=== PATIENT | female | born 1965 | race Caucasian/White ===

== ENCOUNTER → 2017-06-03 | Outpatient (CLI) | payer MEDICARE, OTHER ==
--- NOTE | 2017-06-05 10:09 | MM ---
Reason for exam: screening (asymptomatic). Last mammogram was performed 3 years and 8 months ago. History: Patient history of other cancer. Implants in both breasts, 2005. Physical Findings: A clinical breast exam by your physician is recommended on an annual basis and results should be correlated with mammographic findings. MG 3D Screen Mammo Imp/Cad Bilateral CC, MLO, and ID view(s) were taken. XCCL view(s) were taken of the right breast. Prior study comparison: September 24, 2013, mammogram, performed at [facility]. October 03, 2010, mammogram, performed at [facility]. Finding: There is a high density, indistinct irregular mass located 5 cm from the nipple in the upper inner quadrant, anterior position of the left breast medial CC view. Bilateral breast prothesis. New finding since September 24, 2013 and October 03, 2010. ASSESSMENT: Incomplete: need additional imaging evaluation, BI-RAD 0 RECOMMENDATION: Ultrasound of the left breast. [facility] will attempt to contact patient to return for ultrasound.
== END | disposition home or self-care (01) ==
LOC: RADMAMWWP 09:29
PROVIDERS: ATTEND Family Medicine
DX: Z12.31 Encounter for screening mammogram for malignant neoplasm of breast (principal)
CPT/HCPCS: 77063; G0202

== ENCOUNTER → 2017-06-20 | Outpatient (CLI) | payer MEDICARE, OTHER ==
--- NOTE | 2017-06-20 11:38 | USB ---
Reason for exam: additional evaluation requested from abnormal screening. History: Patient history of other cancer. Implants in both breasts, 2004. Physical Findings: Nurse did not find any significant physical abnormalities on exam. US Breast Workup Limited LT Technologist: Martha Gimenez Left breast ultrasound demonstrates a 0.4 x 0.3 x 0.6cm oval, mixed lesion at 9 o'clock. These results were verbally communicated with the patient and result sheet given to the patient on 06/20/17. ASSESSMENT: Suspicious, BI-RAD 4 RECOMMENDATION: Surgical consultation and ultrasound core biopsy of the left breast. Called Dr. Curtis with mammographic findings and has scheduled an appointment for the patient for 06/27/17 at 11:[address] Wolfe. PRELIMINARY REPORT CALLED AND FAXED TO DR. WOLFE ON 06/20/17.
== END | disposition home or self-care (01) ==
LOC: RADUSWWP 10:17
PROVIDERS: ATTEND Family Medicine
DX: R92.8 Other abnormal and inconclusive findings on diagnostic imaging of breast (principal)

== ENCOUNTER → 2017-08-06 | Day surgery (SDC) | payer MEDICARE, OTHER ==
--- NOTE | 2017-08-06 12:56 | USB ---
Discontinued breast biopsy CLINICAL INDICATION: Prior abnormal left breast ultrasound. FINDINGS: Again the patient was noted to be hypertensive and did not follow up the primary care physi saulo between the scheduled biopsy and today's scheduled biopsy. The patient was instructed to follow- up with a primary care physician for blood pressure control. Following this the biopsy will be resche duled.
== END ==
LOC: RADUSWWP 11:26
PROVIDERS: ATTEND Surgery
DX: R92.8 Other abnormal and inconclusive findings on diagnostic imaging of breast (principal); Z53.8 Procedure and treatment not carried out for other reasons; R03.0 Elevated blood-pressure reading, without diagnosis of hypertension

== ENCOUNTER → 2017-08-29 | Outpatient (CLI) | payer MEDICARE, OTHER ==
--- NOTE | 2017-08-29 14:51 | MR ---
EXAMINATION TYPE: MR brain wo con DATE OF EXAM: 08/29/2017 COMPARISON: 04/29/2015 HISTORY: 51-year-old female Paresthesia of skin / Facial numbness TECHNIQUE: Multiplanar, multisequence images of the brain and brainstem were acquired without IV con trast. Diffusion weighted imaging is performed. FINDINGS: No evidence for acute infarction, hemorrhage, mass, mass effect, midline shift, herniation, effacemen t of basal cisterns, or extra-axial fluid collection. The ventricles and sulci are age-appropriate. Major intracranial flow voids are intact. T2/FLAIR weighted sequences show mild to moderate scattered bright signal foci in the subcortical, pe riventricular, and deep white matter of both cerebral hemispheres. No significant change from prior e xam. Midline structures demonstrate normal morphology. The craniocervical junction is normal. Small amount of trapped fluid in the inferior right mastoid air cells. Mild mucosal thickening ethmoi d air cells. Globes are intact though patient's gaze is slightly divergent suggesting underlying stra bismus. IMPRESSION: 1. Chronic T2 bright white matter changes as described above. There is mild to moderate scattered bur den, unchanged from 04/29/2015 where differential diagnosis was provided. 2. No acute intracranial pneumonia seen. 3. Small amount of trapped fluid in the right mastoid air cells. Correlate for any mastoid pain to ex clude mastoiditis.
== END | disposition home or self-care (01) ==
LOC: RADMRIMAIN 13:40
PROVIDERS: ATTEND Family Medicine
DX: R90.89 Other abnormal findings on diagnostic imaging of central nervous system (principal); R20.2 Paresthesia of skin
CPT/HCPCS: 70551

== ENCOUNTER 2017-10-14 07:26 | Day surgery (SDC) | payer MEDICARE, OTHER ==
[2017-10-10 15:19] VITALS: BMI 30.1
[2017-10-14] MEDS ORDERED: ALPRAZolam 0.25 MG TAB PO PRN (07:45)
[2017-10-14] MEDS ORDERED: ASPIRIN 325 MG TAB PO STA (07:45)
[2017-10-14] MEDS ORDERED: ATORVASTATIN 80 MG TAB PO STA (07:45)
[2017-10-14] MEDS ORDERED: ALPRAZolam 0.5 MG TAB PO PRN (07:45)
[2017-10-14] MEDS ORDERED: NITROGLYCERIN SL TABS 0.4 MG TAB SUBLINGUAL PRN (07:45)
[2017-10-14] MEDS ORDERED: SODIUM CHLORIDE 0.9% 1,000 ML in EMPTY BAG 1 BAG IV ONE (07:45)
[2017-10-14 08:38] VITALS: PULSE 63; TEMP 97.9
[2017-10-14] MEDS ORDERED: LIDOCAINE 2% INJ 20 MG/ML (20 ML MDV) ONE (09:36)
[2017-10-14] MEDS ORDERED: fentaNYL (PF) 50 MCG/ML 2 ML AMP ONE (10:01)
[2017-10-14] MEDS ORDERED: MIDAZOLAM 2 MG/2 ML VIAL ONE (10:01)
[2017-10-14] MEDS ORDERED: MIDAZOLAM 2 MG/2 ML VIAL IV ONE (10:04)
[2017-10-14] MEDS ORDERED: LIDOCAINE 2% INJ 20 MG/ML SQ ONE (10:05)
[2017-10-14] MEDS ORDERED: fentaNYL (PF) 50 MCG/ML 2 ML AMP IV ONE (10:05)
[2017-10-14] MEDS ORDERED: hydrALAZINE HCL 20 MG/ML 1 ML VIAL ONE (10:10)
[2017-10-14] MEDS ORDERED: hydrALAZINE HCL 20 MG/ML 1 ML VIAL IVP ONE (10:11)
[2017-10-14] MEDS ORDERED: LABETALOL 5 MG/ML VIAL MDV IVP ONE (10:15)
[2017-10-14] MEDS ORDERED: NITROGLYCERIN OINT 1 INCH/GM PACKET TOPICAL ONE ×2 (10:17→10:18)
[2017-10-14] MEDS ORDERED: amLODIPine 5 MG TAB ONE (10:23)
[2017-10-14] MEDS ORDERED: amLODIPine 5 MG TAB PO ONE (10:24)
[2017-10-14] MEDS ORDERED: IOHEXOL 350 MG/ML (PER ML) 100ML BTL INJ ONE (10:24)
[2017-10-14] MEDS ORDERED: HYDROcodone/APAP 5-325MG 1 EACH TAB PO PRN (10:32)
[2017-10-14] MEDS ORDERED: RX INFO: IV CONTRAST WAS GIVEN 1 EACH MISC MISCELLANE PRN (10:32)
[2017-10-14] MEDS: LABETALOL 5 MG/ML VIAL MDV IVP ONE ×2 (10:33→10:38)
--- NOTE | 2017-10-14 10:39 | P.PCN ---
Date of Procedure: 10/14/17 Preoperative Diagnosis: Chest pain and a positive stress test Postoperative Diagnosis: Normal coronary arteries Procedure(s) Performed: Left heart catheterization without left ventriculography Description of Procedure: HISTORY: This is a 52-year-old female with history of hypertension who was recently evaluated by stress test which was suggestive of ischemia in the apical lateral wall area. Patient has been having chest pains. She was given the option of having a dobutamine echo versus cardiac cath for definitive diagnosis. Patient preferred to have cardiac catheterization. CONSENT:I have discussed the risks, benefits and alternative therapies for the above-mentioned procedure and for both sedation/analgesia as well as necessary blood product administration, if indicated, as they pertain to this patient. The patient has indicated understanding and acceptance of the risks and procedures discussed. PROCEDURE: Patient was brought to the lab in a fasting state. Patient was given some IV sedation. The right groin is infiltrated with lidocaine and right femoral artery was entered using Seldinger technique. A 6-Mongolian catheter was left in place and selective coronary arteriography and left ventriculography was performed. Patient tolerated the procedure well. Femoral angiogram was performed and Angio-Seal was applied for hemostasis. No immediate complications were noted and patient was transferred to [facility] in a stable condition Conscious Sedation: Versed: 2 mg Fentanyl: 50 g Duration: 22minutes HEMODYNAMICS: The aortic pressure is about 170/110. Left ventricular end- diastolic pressure is about 12-16. There was no gradient across the aortic valve. SELECTIVE CORONARY ARTERIOGRAPHY: LEFT MAIN: The left main coronary artery is of normal length and patent THE LEFT ANTERIOR DESCENDING CORONARY ARTERY:. This is a good caliber vessel giving rise to small diagonal and septal branches. The LAD and its branches are free of occlusive disease. THE LEFT CIRCUMFLEX AND IS CORONARY ARTERY: This is a fairly caliber vessel giving rise to 2 distal PLV branches and a small OM branch. This is free of occlusive disease THE RIGHT CORONARY ARTERY:. This is a dominant vessel giving rise to good-sized PDA and PLV. Free of any occlusive disease LEFT VENTRICULOGRAPHY:. Not performed FINAL IMPRESSION:, Normal coronary arteries. Uncontrolled hypertension.. Mildly elevated end-diastolic pressure PLAN: Maximum medical therapy and this factor modification PROGNOSIS: Fair.
[2017-10-14] MEDS ORDERED: SODIUM CHLORIDE 0.9% 1,000 ML IV SCH (10:45)
[2017-10-14 16:38] VITALS: BP 143/88; RESP 18
== END 2017-10-14 16:30 | disposition home or self-care (01) ==
LOC: CATHCVL 07:26
PROVIDERS: ATTEND Internal Medicine Cardiovascular Disease
DX: R94.39 Abnormal result of other cardiovascular function study (principal); R07.89 Other chest pain; I10 Essential (primary) hypertension; Z82.49 Family history of ischemic heart disease and other diseases of the circulatory system; Z79.1 Long term (current) use of non-steroidal anti-inflammatories (NSAID); Z79.899 Other long term (current) drug therapy; Z88.2 Allergy status to sulfonamides
CPT/HCPCS: 93458; C1760; C1894; C1769; J2001; J2250; J0360; Q9967; J3010

== ENCOUNTER → 2018-01-15 | Outpatient (CLI) | payer MEDICARE, OTHER ==
[2018-01-15 15:00] VITALS: BMI 29.7
--- NOTE | 2018-01-15 15:27 | P.GSHP ---
History of Present Illness H&P Date: 01/15/18 Patient is a 52-year-old white female who is been followed for mammographic abnormality in the left breast. In May 2017 she was noted to have a high density indistinct irregular mass 5 cm from the nipple in the upper inner quadrant of the left breast. She additionally was noted to have bilateral breast prosthesis. No lesions of concern in the right breast. The patient subsequently had an ultrasound performed after which an ultrasound core biopsy was recommended however I do not have the reports of that ultrasound at this time. An attempt at ultrasound-guided core biopsy was performed on in July 2017 however the patient was hypertensive and therefore the biopsy was canceled. The patient does not feel anything in her breast. The patient is now being treated for the high blood pressure. She wants to be evaluated prior to the attempt at repeat biopsy. The patient has no nipple discharge or changes of concern. The patient has no pain in her breast. Family history: 1. Patient has had skin cancer in the past, squamous cell Menarche: 11 Pregnancies: 2, patient did not breast-feed Menopause: The patient had a hysterectomy at the age of 33. Do not take both ovaries control pills/hormones: Never used Social history: Smoking: Negative Alcohol: Negative Drugs: Medical marijuana used for for hip pain and high blood pressure uses a several times a week Past surgical history: 1. Breast implants bilateral. Skin reduction 2. Left hip and plan 3. Carpal tunnel bilaterally 4. Appendectomy 5. Leg lengthening of the muscles in both of her legs 6. A hysterectomy 7. Tubal ligation 8. surgical removal of eyelid left eye for SCC Past medical history: 1. Hypertension 2. Skin cancers treated with surgical resection, followed by dermatology 3. anxiety/depression Review of systems: HEENT: Negative Lungs: Negative Heart: Hypertension, negative GI: Negative : Status post hysterectomy this was performed for irregular bleeding Neurologic: Negative ALLERGIES: Seasonal Endocrine: none - Constitutional Constitutional: Reports as per HPI - EENT Eyes: bilateral as per HPI Ears, nose, mouth and throat: Reports as per HPI - Breasts Breasts: bilateral: as per HPI - Cardiovascular Cardiovascular: Reports as per HPI - Respiratory Respiratory: Reports as per HPI - Gastrointestinal Gastrointestinal: Reports as per HPI - Genitourinary (Female) Genitourinary: Denies dysuria, Denies hematuria - Musculoskeletal Comment: arthritis - Integumentary Integumentary: Reports as per HPI - Neurological Neurological: Reports as per HPI - Psychiatric Psychiatric: Reports anxiety, Reports depression - Endocrine Endocrine: Reports weight change, Denies fatigue - Hematologic/Lymphatic Comment: none - Allergic/Immunologic Allergic/Immunologic: Reports as per HPI Past Medical History Past Medical History: Cancer, GERD/Reflux Additional Past Medical History / Comment(s): SEE DR ROMERO'S H&P, HX SKIN CA History of Any Multi-Drug Resistant Organisms: MRSA Date of last positivie culture/infection: 2009 MDRO Source:: bilat thighs and left eye Past Surgical History: Appendectomy, Breast Surgery, Hysterectomy, Joint Replacement, Orthopedic Surgery, Tubal Ligation Additional Past Surgical History / Comment(s): carpal tunnel bilat hands, jenna. leg surgery(STRETCHING OF JENNA CALF MUSCLES), Right hip replacement. SKIN CA REMOVED LEFT EYELID. BREAST IMPLANTS Past Anesthesia/Blood Transfusion Reactions: No Reported Reaction Smoking Status: Never smoker - Past Family History Mother Family Medical History: No Reported History Medications and Allergies Home Medications Medication Instructions Recorded Confirmed Type Lisinopril [Prinivil] 40 mg PO DAILY 07/04/17 10/14/17 History Montelukast [Singulair] 1 each PO DAILY 07/04/17 10/14/17 History Pantoprazole Sodium 40 mg PO DAILY 07/04/17 10/14/17 History lamoTRIgine [LaMICtal] 200 mg PO DAILY 07/04/17 10/14/17 History Mirtazapine [Remeron] 1 tab PO DAILY 07/16/17 10/14/17 History Aspirin 325 mg PO ONCE 10/14/17 10/14/17 History Metoprolol Tartrate [Lopressor] 100 mg PO DAILY 10/14/17 10/14/17 History Naproxen [Naprosyn] 500 mg PO 10/14/17 History QUEtiapine [SEROquel] 300 mg PO DAILY 10/14/17 10/14/17 History Allergies Allergy/AdvReac Type Severity Reaction Status Date / Time sulfamethoxazole Allergy Nausea Verified 08/06/17 11:47 [From Bactrim] trimethoprim [From Bactrim] Allergy Nausea Verified 08/06/17 11:47 Surgical - Exam - General obese - Eyes normal ocular movement - ENT normal pinna, normal mucosa - Neck no masses, trachea midline - Respiratory normal respiratory effort, clear to auscultation - Cardiovascular Rhythm: regular Heart Sounds: normal: S1, S2 - Abdomen Abdomen: soft, non tender, no guarding, no rigid, no rebound - Integumentary tattos - Neurologic no disoriented, no combative - Musculoskeletal normal gait, normal posture - Psychiatric oriented to time, oriented to person, oriented to place, speech is normal, memory intact Assessment and Plan Assessment: Impression/plan: 1. Mammographic/ultrasound abnormality left breast for which biopsy has been recommended in the past 2. Hypertension 3. Anxiety/depression 4. Squamous cell carcinoma of the skin 5. Prior left hip replacement in past 6. Prior bilateral breast skin reduction and implant placement Plan: 1. Medical management of medical conditions 2. Radiographs reviewed with radiologist will attempt ultrasound guided core biopsy Cc: Lizandro Webb/Shruti; affiliated with [facility]
== END ==
LOC: WWCWWP 14:51
PROVIDERS: ATTEND Surgery
DX: Z53.9 Procedure and treatment not carried out, unspecified reason (principal)

== ENCOUNTER → 2018-01-30 | Day surgery (SDC) | payer MEDICARE, OTHER ==
[2018-01-30 09:29] VITALS: RESP 12
[2018-01-30 09:43] VITALS: TEMP 98.7
[2018-01-30 10:20] VITALS: BP 180/120; PULSE 65
--- NOTE | 2018-01-30 10:32 | USB ---
EXAMINATION TYPE: US discontinued breast bx LT DATE OF EXAM: 01/30/2018 COMPARISON: NONE HISTORY: Abnormal ultrasounds FINDINGS: Patient presented for left breast ultrasound-guided core biopsy. Initial evaluation was per formed. Pressures were elevated. I personally obtained blood pressures on each arm at 180/120, which correlated with mechanical and manual evaluations performed by the nurse. Procedure was aborted for the safety issues. Given the elevated pressures patient was advised to go t o the emergency room which was refused. The patient did however make an appointment for today to see her healthcare providers in the office. IMPRESSION: 1. Ultrasound biopsy terminated prior to skin incision due to elevated blood pressures.
== END ==
LOC: RADUSWWP 09:01
PROVIDERS: ATTEND Surgery
DX: R92.8 Other abnormal and inconclusive findings on diagnostic imaging of breast (principal); Z53.8 Procedure and treatment not carried out for other reasons; R03.0 Elevated blood-pressure reading, without diagnosis of hypertension

== ENCOUNTER → 2018-02-26 | Day surgery (SDC) | payer MEDICARE, OTHER ==
[2018-02-26 12:01] VITALS: RESP 16; BMI 30.1
--- NOTE | 2018-02-26 13:51 | USB ---
EXAMINATION TYPE: US biopsy breast VAD LT, MG diagnostic mammo LT wo CAD DATE OF EXAM: 02/26/2018 CLINICAL HISTORY: R92.8 ABNORMAL MAMMOGRAM. TECHNIQUE: Ultrasound guided core biopsy of left breast. COMPARISON: Exams dating back to 06/20/2017 FINDINGS: The procedure of ultrasound guided core biopsy was explained to the patient. Benefits, alternatives, and risks were discussed. An informed consent was then obtained. The patient was placed in supine positioning for imaging and for the procedure. The overlying skin was prepped and draped in usual sterile fashion. 10 cc of lidocaine buffered with bicarbonate was used as anesthetic into the skin and 5 cc of lidocaine with epinephrine was utilized to anesthetize the subcutaneous tissue up to the 0.4 x 0.3 x 0.6 cm mass at the 9:00 position within the left breast. Under ultrasound guidance, a 12-gauge vacuum assisted biopsy gun device was used to obtain 4 core samples. Following this, a ribbon-shaped biopsy marker was left in lesion. This correlates with the previously seen mammographic focal asymmetry. The patient tolerated the procedure well without any immediate complication. The patient was kept in the radiology department for short stay after the procedure and then discharged home in stable condition. IMPRESSION: Successful, uncomplicated ultrasound guided core biopsy of 0.4 x 0.3 x 0.6 cm mass at the 9:00 position within the left breast, full pathology results to follow. Additional similar appearing subcentimeter (0.2 x 0.1 x 0.3 cm) mass at the 9:00 position in zone BC was identified on preprocedural imaging and recommendations for this mass will be based on biopsy results. Pathology Results: Benign BREAST, LEFT, ULTRASOUND GUIDED CORE BIOPSY: Fibrocystic changes including cysts, fibrosis and apocrine metaplasia. Recommendation Follow up mammogram and ultrasound of the left breast in 6 months. Attention to the second 9 o'clock zone B/C lesion that is too small to characterize at the present time. MTDD
[2018-02-26 14:05] VITALS: BP 144/94; PULSE 66; TEMP 97.8
== END | disposition home or self-care (01) ==
LOC: RADUSWWP 11:18
PROVIDERS: ATTEND Surgery
DX: N60.32 Fibrosclerosis of left breast (principal); N60.02 Solitary cyst of left breast; N60.82 Other benign mammary dysplasias of left breast; Z88.2 Allergy status to sulfonamides
CPT/HCPCS: 88305; 77065; 19083; A4648; J2001

== ENCOUNTER → 2018-03-05 | Outpatient (CLI) | payer MEDICARE, OTHER ==
[2018-03-05 11:27] VITALS: BP 194/108; PULSE 69; TEMP 96.6; BMI 30.1
--- NOTE | 2018-03-05 11:27 | P.PN ---
Progress Note - Text Progress Note Date: 03/05/18 Deirdre is a 52-year-old white female status post ultrasound-guided core biopsy of an area of concern in the left breast performed . The pathology results revealed fibrocystic changes with no evidence of cancer or precancer. The patient at this time is doing well and complains only of some mild ecchymosis at the site. Physical exam: Lungs: Clear Heart: Regular rate and rhythm Biopsy site: Mild ecchymosis no evidence of any infection Impression/plan: 1. Patient is status post ultrasound-guided core biopsy of area of concern in the left breast. The results from biopsy are benign 2. Repeat left breast mammogram and ultrasound in 6 months time with physician exam at that time. Attention will also be paid to 9:00 area which is too small to characterize anything of definite concern at this time. Cc: Lizandro Webb; Dr. Marisela Curtis
== END | disposition home or self-care (01) ==
LOC: WWCWWP 10:25
PROVIDERS: ATTEND Surgery
DX: Z53.9 Procedure and treatment not carried out, unspecified reason (principal)

== ENCOUNTER 2018-09-23 14:53 | Observation (INO) | payer MEDICARE, OTHER ==
--- NOTE | 2018-09-23 15:54 | XR ---
EXAMINATION TYPE: XR chest 2V DATE OF EXAM: 09/23/2018 COMPARISON: 08/29/2018 HISTORY: Shortness of breath TECHNIQUE: Frontal and lateral views of the chest are obtained. FINDINGS: Scattered senescent parenchymal changes noted. Hyperinflation compatible with COPD. No evidence for infiltrate. No evidence for atelectasis. Heart size is stable. Mediastinal structures are stable and grossly unremarkable. No evidence for hilar prominence. Degenerative changes dorsal spine. IMPRESSION: 1. No evidence for acute pulmonary disease.
[2018-09-23 15:55] LABS: Basophils % (A) 0 %; Eosinophils # (A) 0.1 k/uL (0-0.7); Eosinophils % (A) 1 %; HCT 41.8 % (34.0-46.0); HGB 13.8 gm/dL (11.4-16.0); Lymphocytes # (A) 1.4 k/uL (1.0-4.8); Lymphocytes % (A) 19 %; MCH 29.8 pg (25.0-35.0); MCHC 32.9 g/dL (31.0-37.0); MCV 90.6 fL (80.0-100.0); Mean Platelet Volume 6.5; Monocytes # (A) 0.4 k/uL (0-1.0); Monocytes % (A) 5 %; Neutrophils # (A) 5.7 k/uL (1.3-7.7); Neutrophils % (A) 74 %; Platelet Count 295 k/uL (150-450); RBC 4.62 m/uL (3.80-5.40); RDW 13.8 % (11.5-15.5); WBC 7.7 k/uL (3.8-10.6)
[2018-09-23 16:05] LABS: Albumin 3.6 g/dL (3.5-5.0); Calcium 9.3 mg/dL (8.4-10.2); Magnesium 1.7 mg/dL (1.6-2.3); Potassium 3.7 mmol/L (3.5-5.1); Total Bilirubin 0.6 mg/dL (0.2-1.3); Total Protein 6.5 g/dL (6.3-8.2)
[2018-09-23 16:07] LABS: INR 0.9 (<1.2); Partial Thromboplastin Time 22.3 sec (22.0-30.0); Prothrombin Time 9.8 sec (9.0-12.0)
[2018-09-23] MEDS ORDERED: NALOXONE 0.4 MG/ML 1 ML VIAL IV PRN (17:51)
--- NOTE | 2018-09-23 17:51 | ED ---
Chest Pain HPI - General Chief Complaint: Chest Pain Stated Complaint: Chest Pain Time Seen by Provider: 09/23/18 14:57 Source: patient, EMS Mode of arrival: ambulatory Limitations: no limitations - History of Present Illness Initial Comments: Patient presents to the emergency department with chest pain. Pain is substernal. It moves to the left side. Patient had some associated lightheadedness, diaphoresis and nausea. States the pain is ongoing. It has improved a little bit. She was not doing anything when the pain began. She does have elevated blood pressure. She has no pain or swelling the legs. She denies palpitations. She denies sick contacts or travel. She has no shortness of breath. She has no headache. She has no lightheadedness or dizziness. - Related Data Home Medications Medication Instructions Recorded Confirmed Montelukast [Singulair] 10 mg PO HS 07/04/17 09/23/18 Pantoprazole Sodium 40 mg PO HS 07/04/17 09/23/18 Metoprolol Succinate (ER) [Toprol 100 mg PO HS 08/28/18 09/23/18 XL] Mirtazapine [Remeron] 30 mg PO BID 08/28/18 09/23/18 QUEtiapine [SEROquel] 100 mg PO DAILY 08/28/18 09/23/18 Baclofen [Lioresal] 10 mg PO HS 09/23/18 09/23/18 Lisinopril 40 mg PO DAILY 09/23/18 09/23/18 Naproxen [Naprosyn] 500 mg PO BID 09/23/18 09/23/18 QUEtiapine FUMARATE [SEROquel] 300 mg PO HS 09/23/18 09/23/18 hydrALAZINE HCL [Apresoline] 25 mg PO QID 09/23/18 09/23/18 lamoTRIgine [LaMICtal] 200 mg PO HS 09/23/18 09/23/18 Previous Rx's Medication Instructions Recorded cloNIDine HCL [Catapres] 0.2 mg PO TID #90 tab 09/03/18 Allergies Allergy/AdvReac Type Severity Reaction Status Date / Time banana Allergy Unknown Verified 08/28/18 21:31 sulfamethoxazole Allergy Nausea Verified 08/28/18 21:31 [From Bactrim] trimethoprim [From Bactrim] Allergy Nausea Verified 08/28/18 21:31 Review of Systems ROS Statement: Those systems with pertinent positive or pertinent negative responses have been documented in the HPI. ROS Other: All systems not noted in ROS Statement are negative. EKG Findings - EKG Comments: EKG Findings:: Twelve-lead EKG shows ventricular rate 83 bpm, normal VA interval and [place] complex is, no ST elevation, but there is ST depression in the lateral leads. This is interpreted by me as normal sinus rhythm with possible ischemia. Past Medical History Past Medical History: Cancer, GERD/Reflux, Hypertension Additional Past Medical History / Comment(s): HX SKIN CA History of Any Multi-Drug Resistant Organisms: MRSA Date of last positivie culture/infection: 2009 MDRO Source:: bilat thighs and left eye Past Surgical History: Appendectomy, Breast Surgery, Hysterectomy, Joint Replacement, Orthopedic Surgery, Tubal Ligation Additional Past Surgical History / Comment(s): carpal tunnel bilat hands, jenna. leg surgery(STRETCHING OF JENNA CALF MUSCLES), Right hip replacement. SKIN CA REMOVED LEFT EYELID. BREAST IMPLANTS Past Anesthesia/Blood Transfusion Reactions: No Reported Reaction Past Psychological History: ADD/ADHD, Anxiety, Bipolar, Depression Smoking Status: Never smoker Past Alcohol Use History: None Reported Past Drug Use History: Marijuana - Past Family History Mother Family Medical History: No Reported History Father Family Medical History: Myocardial Infarction ([place]) Additional Family Medical History / Comment(s): stents General Exam Limitations: no limitations General appearance: alert, in no apparent distress Head exam: Present: atraumatic, normocephalic, normal inspection Eye exam: Present: normal appearance, PERRL, EOMI. Absent: scleral icterus, conjunctival injection, periorbital swelling ENT exam: Present: normal exam, mucous membranes moist Neck exam: Present: normal inspection. Absent: tenderness, meningismus, lymphadenopathy Respiratory exam: Present: normal lung sounds bilaterally. Absent: respiratory distress, wheezes, rales, rhonchi, stridor Cardiovascular Exam: Present: regular rate, normal rhythm, normal heart sounds. Absent: systolic murmur, diastolic murmur, rubs, gallop, clicks GI/Abdominal exam: Present: soft, normal bowel sounds. Absent: distended, tenderness, guarding, rebound, rigid Extremities exam: Present: normal inspection, full ROM, normal capillary refill. Absent: tenderness, pedal edema, joint swelling, calf tenderness Back exam: Present: normal inspection Neurological exam: Present: alert, oriented X3, CN II-XII intact Psychiatric exam: Present: normal affect, normal mood Skin exam: Present: warm, dry, intact, normal color. Absent: rash Course Vital Signs 09/23/18 09/23/18 14:54 17:26 Temperature 100.8 F H Pulse Rate 89 68 Respiratory 18 18 Rate Blood Pressure 126/98 121/98 O2 Sat by Pulse 98 98 Oximetry Chest Pain MDM - Core Measures AMI Core Measures Followed: Yes - MDM Patient presents with chest pain. Her laboratory studies are normal. She will be admitted to the hospital. I will consult cardiology. Disposition Clinical Impression: Chest pain Disposition: ADMITTED IP TO THIS HOSP Condition: Fair Instructions (If sedation given, give patient instructions): Chest Pain (ED) Is patient prescribed a controlled substance at d/c from ED?: No Referrals: Marisela Curtis DO [Primary Care Provider] - 1-2 days
[2018-09-23] MEDS ORDERED: hydrALAZINE HCL 25 MG TAB PO SCH (18:00)
[2018-09-23] MEDS ORDERED: QUEtiapine 100 MG TAB PO SCH (21:00)
[2018-09-23] MEDS ORDERED: PANTOPRAZOLE 40 MG TABLET PO SCH (21:00)
[2018-09-23] MEDS ORDERED: METOPROLOL SUCCINATE (ER) 100 MG TAB.ER.24H PO SCH (21:00)
[2018-09-23] MEDS ORDERED: lamoTRIgine 100 MG TAB PO SCH (21:00)
[2018-09-23] MEDS ORDERED: MONTELUKAST 10 MG TAB PO SCH (21:00)
[2018-09-23] MEDS: cloNIDine HCL 0.2 MG TAB PO SCH (21:08)
[2018-09-23] MEDS: MIRTAZAPINE 15 MG TAB PO SCH (21:09)
[2018-09-23] MEDS: hydrALAZINE HCL 25 MG TAB PO SCH (21:14)
[2018-09-24] MEDS ORDERED: SODIUM CHLORIDE 0.9% 1,000 ML IV SCH (08:00)
[2018-09-24] MEDS: MIRTAZAPINE 15 MG TAB PO SCH (08:15)
[2018-09-24] MEDS: cloNIDine HCL 0.2 MG TAB PO SCH (08:16)
[2018-09-24] MEDS: hydrALAZINE HCL 25 MG TAB PO SCH ×2 (08:16→12:14)
--- NOTE | 2018-09-24 08:23 | CONS ---
CONSULTATION CHIEF COMPLAINT: Chest pain. Deirdre is a 53-year-old lady with history of hypertension who presents to hospital complaining of chest pain. She describes it as a precordial chest pressure that is associated with lightheadedness, diaphoresis and radiation to left arm. It is mild to moderate intensity, came on at rest and has gradually subsided after she came to the emergency room. She had been in the hospital recently and was seen by my associate, Dr. Lau. She has history of hypertension and had hypertensive emergency at last visit. An echocardiogram on her showed normal LV systolic function with an ejection fraction of 55% to 60%. At the time of my evaluation, she is chest pain-free hemodynamically stable and in no apparent distress. Three sets of cardiac enzymes have been negative and the EKG shows sinus rhythm, poor R-wave progression and nonspecific ST-T wave changes. PAST MEDICAL HISTORY: Significant for hypertensive heart disease. MEDICATIONS: Medications include Apresoline, Catapres, Seroquel, Naprosyn, Singulair, Remeron, Toprol-XL, lisinopril, baclofen and Lamictal. ALLERGIES: The patient is allergic to BACTRIM. FAMILY HISTORY: Family history is significant for premature coronary artery. SOCIAL HISTORY: She denies current smoking, EtOH abuse, or drug abuse. REVIEW OF SYSTEMS: HEENT is unremarkable. CARDIAC: As described above. RESPIRATORY: Negative. GI: Negative. GENITOURINARY: Negative. ALLERGY/IMMUNOLOGICAL: Negative. SKIN: Negative. MUSCULOSKELETAL: Significant for arthritis. PSYCHOSOCIAL: Negative. ENDOCRINE: Negative. DERM: Negative. CONSTITUTIONAL: Negative. ONCOLOGICAL: Negative. Rest of the system review is not relevant. PHYSICAL EXAMINATION: On exam, comfortable at rest. Vital signs are stable. There is no jugular venous distention. Carotid upstroke is normal. There is no bruit. Chest exam reveals good air entry bilaterally. Heart exam reveals first and second heart sounds. No gallop. No murmur. No rub. Abdomen is soft, nontender. Examination of the extremities did not reveal any edema. Peripheral pulses are felt. LABS: Labs show that the hemoglobin is 13.8, potassium is 3.7, creatinine is 1.3. Three sets of troponins are negative. ASSESSMENT: 1. Unstable angina. 2. Hypertensive heart disease. 3. Chronic renal insufficiency. PLAN: Given the typical symptoms, I advised the patient to undergo cardiac catheterization for definitive diagnosis. She had been explained of risks, benefits and alternatives, understood and accepted. I am going to talk to Dr. Lau and schedule it with him. ISADORA / SIMA: [phone] /
[2018-09-24 08:29] VITALS: RESP 18
[2018-09-24] MEDS ORDERED: QUEtiapine 100 MG TAB PO SCH (09:00)
[2018-09-24] MEDS ORDERED: LISINOPRIL 20 MG TAB PO SCH (09:00)
[2018-09-24 09:14] LABS: Basophils # (A) 0.1 k/uL (0-0.2); Basophils % (A) 1 %; Eosinophils # (A) 0.3 k/uL (0-0.7); Eosinophils % (A) 4 %; HCT 40.7 % (34.0-46.0); HGB 13.3 gm/dL (11.4-16.0); Lymphocytes % (A) 48 %; MCH 30.3 pg (25.0-35.0); MCHC 32.7 g/dL (31.0-37.0); MCV 92.8 fL (80.0-100.0); Mean Platelet Volume 7.2; Monocytes # (A) 0.4 k/uL (0-1.0); Monocytes % (A) 6 %; Neutrophils # (A) 2.5 k/uL (1.3-7.7); Neutrophils % (A) 40 %; Platelet Count 285 k/uL (150-450); RBC 4.39 m/uL (3.80-5.40); RDW 13.9 % (11.5-15.5); WBC 6.3 k/uL (3.8-10.6)
[2018-09-24 09:24] LABS: Albumin 3.4 g/dL (3.5-5.0); Calcium 9.2 mg/dL (8.4-10.2); Potassium 3.8 mmol/L (3.5-5.1); Total Bilirubin 0.6 mg/dL (0.2-1.3)
--- NOTE | 2018-09-24 09:27 | P.HPIM ---
History of Present Illness H&P Date: 09/24/18 This 53-year-old female patient of Dr. Curtis. Patient presented today with complaints of chest pain. Patient lives with eating. Yesterday afternoon described chest pressure that was associated with lightheadedness diaphoresis and headache. Patient reports that the chest pain eventually subsided. Patient does have a past medical history of hypertension in which she recently was admitted and evaluated by cardiology services. During that time patient underwent 2-D echo that showed normal LV systolic function with EF of 55-60%. Additional medical history includes skin cancer, GERD, hypertension and osteoarthritis. Chest x-ray completed showing no evidence for acute pulmonary disease. EKG completed showing normal sinus rhythm, possible enlargement. Possible anterior infarct, age undetermined. Troponins negative 3. At this time patient is chest pain-free. Patient denies any fever. Patient denies any cough or shortness of breath. Patient denies nausea vomiting or diarrhea. Patient urinary burning or frequency. Review of Systems Please refer to HPI otherwise unremarkable Past Medical History Past Medical History: Cancer, GERD/Reflux, Hypertension, Osteoarthritis (OA) Additional Past Medical History / Comment(s): HX SKIN CA , djd, bipolar depression ,add, History of Any Multi-Drug Resistant Organisms: MRSA Date of last positivie culture/infection: 2009 MDRO Source:: bilat thighs and left eye Past Surgical History: Appendectomy, Breast Surgery, Hysterectomy, Joint Replacement, Orthopedic Surgery, Tubal Ligation Additional Past Surgical History / Comment(s): carpal tunnel bilat hands, jenna. leg surgery(STRETCHING OF JENNA CALF MUSCLES), Right hip replacement. SKIN CA REMOVED LEFT EYELID. BREAST IMPLANTS, nasal sx Past Anesthesia/Blood Transfusion Reactions: No Reported Reaction Smoking Status: Never smoker - Past Family History Mother Family Medical History: No Reported History Father Family Medical History: Coronary Artery Disease (CAD), Myocardial Infarction (VT ) Additional Family Medical History / Comment(s): stents Medications and Allergies Home Medications Medication Instructions Recorded Confirmed Type Montelukast [Singulair] 10 mg PO HS 07/04/17 09/23/18 History Pantoprazole Sodium 40 mg PO HS 07/04/17 09/23/18 History Metoprolol Succinate (ER) [Toprol 100 mg PO HS 08/28/18 09/23/18 History XL] Mirtazapine [Remeron] 30 mg PO BID 08/28/18 09/23/18 History QUEtiapine [SEROquel] 100 mg PO DAILY 08/28/18 09/23/18 History cloNIDine HCL [Catapres] 0.2 mg PO TID #90 tab 09/03/18 09/23/18 Rx Baclofen [Lioresal] 10 mg PO HS 09/23/18 09/23/18 History Lisinopril 40 mg PO DAILY 09/23/18 09/23/18 History Naproxen [Naprosyn] 500 mg PO BID 09/23/18 09/23/18 History QUEtiapine FUMARATE [SEROquel] 300 mg PO HS 09/23/18 09/23/18 History hydrALAZINE HCL [Apresoline] 25 mg PO QID 09/23/18 09/23/18 History lamoTRIgine [LaMICtal] 200 mg PO HS 09/23/18 09/23/18 History Allergies Allergy/AdvReac Type Severity Reaction Status Date / Time banana Allergy Unknown Verified 08/28/18 21:31 sulfamethoxazole Allergy Nausea Verified 08/28/18 21:31 [From Bactrim] trimethoprim [From Bactrim] Allergy Nausea Verified 08/28/18 21:31 Physical Exam Vitals: Vital Signs Temp Pulse Pulse Pulse Resp BP BP 09/24/18 08:00 98.1 F 58 L 18 124/79 09/24/18 04:00 98.0 F 59 L 16 95/61 09/24/18 00:00 98.2 F 65 16 100/59 09/23/18 20:00 16 09/23/18 19:35 98.4 F 69 16 128/83 09/23/18 18:59 97.7 F 96 18 116/82 09/23/18 17:50 97.8 F 09/23/18 17:26 68 18 121/98 09/23/18 14:54 100.8 F H 89 18 126/98 Pulse Ox 09/24/18 08:00 98 09/24/18 04:00 98 09/24/18 00:00 96 09/23/18 20:00 09/23/18 19:35 97 09/23/18 18:59 99 09/23/18 17:50 09/23/18 17:26 98 09/23/18 14:54 98 Intake and Output 02/13/19 02/14/19 02/14/19 22:59 06:59 14:59 Intake Total 300 Balance 300 Intake: Oral 300 Other: Voiding Method Toilet Toilet # Voids 1 2 Head normocephalic Neck supple Lungs clear to auscultation bilaterally no wheezing or crackles Heart regular rate and rhythm S1-S2, no rub or gallop Abdomen is soft nontender nondistended positive bowel sounds no hepatosplenomegaly Extremities no edema Neuro alert and orientated to 3 Results CBC & Chem 7: 09/24/18 03:11 09/23/18 15:25 Labs: Abnormal Lab Results - Last 24 Hours (Table) 09/23/18 Range/Units 15:25 Chloride 109 H (98-107) mmol/L Carbon Dioxide 21 L (22-30) mmol/L Creatinine 1.33 H (0.52-1.04) mg/dL Thrombosis Risk Factor Assmnt - Choose All That Apply Each Factor Represents 1 point: Age 41-60 years, Obesity (BMI >25) Each Risk Factor Represents 2 Points: Malignancy Thrombosis Risk Factor Assessment Total Risk Factor Score: 4 Thrombosis Risk Factor Assessment Level: Moderate Risk Assessment and Plan Assessment: 1. Chest pain. EKG completed showing normal sinus rhythm, possible left atrial enlargement, possible anterior infarct, age undetermined. Troponin negative. Chest x-ray completed showing no evidence for acute pulmonary disease. Per cardiology previous 2-D echo completed showing normal LV systolic function with an EF of 55-60. Cardiology services have been consulted. Planning on cardiac cath. 2. Essential hypertension 3. History of osteoarthritis 4. History of GERD 5. History of skin cancer 6. History of bipolar depression 7. Chronic renal insufficiency. Creatinine 1.31. This does appear baseline for patient. We'll continue to monitor Time with Patient: Greater than 30 (Greater than 60% of the total time spent in counseling and coordination of care. I performed an examination of the patient and discussed their management with the Nurse Practitioner. I have reviewed the Nurse Practitioner's notes and agree with the documented findings and plan of care)
--- NOTE | 2018-09-24 09:32 | P.PN ---
Progress Note - Text ADDENDUM TO CARDIOLOGY CONSULTATION: Previous records reviewed and reveal she underwent cardiac catheterization [address] Arriaga which was normal with no evidence of obstructive CAD. No further cardiac workup at this time. Hydration recommended and ongoing medical management. Follow up upon discharge with Dr. Arriaga.
[2018-09-24 12:26] VITALS: BP 131/86; PULSE 68; TEMP 98.3
--- NOTE | 2018-09-24 14:21 | P.DS ---
Providers Date of admission: 09/23/18 17:51 Expected date of discharge: 09/24/18 Attending physician: Shashank Conte Consults: 09/23/18 17:52 Consult Physician Routine Consulting Provider: Alfonso Lau Consult Reason/Comments: chest pain Do you want consulting provider notified?: Yes Primary care physician: Marisela Curtis Hospital Course: Discharge diagnosis 1. Chest pain. EKG completed showing normal sinus rhythm, possible left atrial enlargement, possible anterior infarct, age undetermined. Troponin negative. Chest x-ray completed showing no evidence for acute pulmonary disease. Per cardiology previous 2-D echo completed showing normal LV systolic function with an EF of 55-60. Cardiology services have been consulted. Per cardiology services patient recently underwent cath in October 2017 and showed normal with no evidence of obstructive CAD. Per cardiology services recommending ongoing management follow-up on discharge with Dr. Metcalf of poly- patient has been cleared for discharge from cardiology standpoint. At this point patient denies any chest pain or shortness breath 2. Essential hypertension 3. History of osteoarthritis 4. History of GERD 5. History of skin cancer 6. History of bipolar depression 7. Chronic renal insufficiency. Creatinine 1.31. This does appear baseline for patient. We'll continue to monitor Hospital course This 53-year-old female patient of Dr. Curtis. Patient presented today with complaints of chest pain. Patient lives with eating. Yesterday afternoon described chest pressure that was associated with lightheadedness diaphoresis and headache. Patient reports that the chest pain eventually subsided. Patient does have a past medical history of hypertension in which she recently was admitted and evaluated by cardiology services. During that time patient underwent 2-D echo that showed normal LV systolic function with EF of 55-60%. Additional medical history includes skin cancer, GERD, hypertension and osteoarthritis. Chest x-ray completed showing no evidence for acute pulmonary disease. EKG completed showing normal sinus rhythm, possible enlargement. Possible anterior infarct, age undetermined. Troponins negative 3. At this time patient is chest pain-free. Patient denies any fever. Patient denies any cough or shortness of breath. Patient denies nausea vomiting or diarrhea. Patient urinary burning or frequency. On 09/24/2018 patient is alert and oriented 3. Patient denies any chest pain or shortness breath at this time. Discussed case with cardiology TELECOMMUNICATIONS OPERATOR. Patient recently underwent cardiac cath on October 2017 that showed no evidence of obstructive CAD. Patient has been cleared from cardiology standpoint. Blood pressure well-controlled at this time. Patient advised to follow-up closely with her PCP cardiology services for further management BP. This time patient denies chest pain or shortness breath. Patient denies nausea vomiting or diarrhea. Patient denies any urinary burning or frequency I performed an examination of the patient and discussed their management with the Nurse Practitioner. I have reviewed the Nurse Practitioner's notes and agree with the documented findings and plan of care Patient Condition at Discharge: Stable Plan - Discharge Summary Discharge Rx Participant: Yes New Discharge Prescriptions: Continue Pantoprazole Sodium 40 mg PO HS Montelukast [Singulair] 10 mg PO HS QUEtiapine [SEROquel] 100 mg PO DAILY Mirtazapine [Remeron] 30 mg PO BID Metoprolol Succinate (ER) [Toprol XL] 100 mg PO HS cloNIDine HCL [Catapres] 0.2 mg PO TID #90 tab hydrALAZINE HCL [Apresoline] 25 mg PO QID Naproxen [Naprosyn] 500 mg PO BID Lisinopril 40 mg PO DAILY lamoTRIgine [LaMICtal] 200 mg PO HS Baclofen [Lioresal] 10 mg PO HS QUEtiapine FUMARATE [SEROquel] 300 mg PO HS Discharge Medication List Montelukast [Singulair] 10 mg PO HS 07/04/17 [History] Pantoprazole Sodium 40 mg PO HS 07/04/17 [History] Metoprolol Succinate (ER) [Toprol XL] 100 mg PO HS 08/28/18 [History] Mirtazapine [Remeron] 30 mg PO BID 08/28/18 [History] QUEtiapine [SEROquel] 100 mg PO DAILY 08/28/18 [History] cloNIDine HCL [Catapres] 0.2 mg PO TID #90 tab 09/03/18 [Rx] Baclofen [Lioresal] 10 mg PO HS 09/23/18 [History] Lisinopril 40 mg PO DAILY 09/23/18 [History] Naproxen [Naprosyn] 500 mg PO BID 09/23/18 [History] QUEtiapine FUMARATE [SEROquel] 300 mg PO HS 09/23/18 [History] hydrALAZINE HCL [Apresoline] 25 mg PO QID 09/23/18 [History] lamoTRIgine [LaMICtal] 200 mg PO HS 09/23/18 [History] Follow up Appointment(s)/Referral(s): Cristel Arriaga MD [STAFF PHYSICIAN] - 2 Weeks Marisela Curtis DO [Primary Care Provider] - 1-2 days Patient Instructions/Handouts: Chest Pain (ED)
== END 2018-09-24 15:30 | disposition home or self-care (01) ==
LOC: EC 14:53 → 1SOBS 17:51
PROVIDERS: ADMIT Internal Medicine; ATTEND Internal Medicine
DX: R07.89 Other chest pain (principal); R07.2 Precordial pain; K21.9 Gastro-esophageal reflux disease without esophagitis; F41.9 Anxiety disorder, unspecified; F90.9 Attention-deficit hyperactivity disorder, unspecified type; I13.10 Hypertensive heart and chronic kidney disease without heart failure, with stage 1 through stage 4 chronic kidney disease, or unspecified chronic kidney disease; N18.9 Chronic kidney disease, unspecified; M19.90 Unspecified osteoarthritis, unspecified site; I20.0 Unstable angina; F31.9 Bipolar disorder, unspecified; Z79.899 Other long term (current) drug therapy; Z88.2 Allergy status to sulfonamides; Z91.018 Allergy to other foods; Z85.828 Personal history of other malignant neoplasm of skin; Z86.14 Personal history of Methicillin resistant Staphylococcus aureus infection; Z96.641 Presence of right artificial hip joint; Z98.82 Breast implant status; Z82.49 Family history of ischemic heart disease and other diseases of the circulatory system; Z90.710 Acquired absence of both cervix and uterus; Z98.51 Tubal ligation status
CPT/HCPCS: 99285; 36415; 93005; 83880; 80053 ×2; 83735; 84484 ×2; 85025 ×2; 85610; 85730; 71046; G0378 ×2

== ENCOUNTER 2018-11-10 05:53 | Day surgery (SDC) | payer MEDICARE, OTHER ==
[2018-11-02 11:29] VITALS: BMI 26.5
[2018-11-10] MEDS ORDERED: ALPRAZolam 0.25 MG TAB PO PRN (06:07)
[2018-11-10] MEDS ORDERED: SODIUM CHLORIDE 0.9% 1,000 ML in EMPTY BAG 1 BAG IV ONE (06:07)
[2018-11-10] MEDS ORDERED: ASPIRIN 325 MG TAB PO STA (06:07)
[2018-11-10 06:52] VITALS: PULSE 72; RESP 20
[2018-11-10] MEDS: MIDAZOLAM 2 MG/2 ML VIAL IVP ONE ×2 (07:36→07:46)
[2018-11-10] MEDS ORDERED: IV FLUID CONTINUATION 800 ML IV ONE (07:37)
[2018-11-10] MEDS ORDERED: LIDOCAINE 1% INJ 10MG/ML (20 ML MDV) SQ ONE (07:48)
[2018-11-10] MEDS ORDERED: fentaNYL (PF) 50 MCG/ML 2 ML AMP IVP ONE (07:50)
[2018-11-10] MEDS ORDERED: MIDAZOLAM 2 MG/2 ML VIAL IVP ONE (07:55)
[2018-11-10] MEDS ORDERED: IOPAMIDOL-250 100ML BTL INTRAARTER ONE (07:57)
[2018-11-10] MEDS ORDERED: hydrALAZINE HCL 20 MG/ML 1 ML VIAL IVP ONE (07:59)
[2018-11-10] MEDS ORDERED: SODIUM CHLORIDE 0.9% 1,000 ML IV SCH (08:15)
--- NOTE | 2018-11-10 08:24 | LTR ---
November 10, 2018 Re: Deirdre Lance Dear Dr. Curtis: Ms. Deirdre Lucas underwent today renal arteries angiogram which revealed no evidence of renal artery stenosis. I want to thank you for allowing me to participate in her care and please do not hesitate to call if you have any question or concern. Sincerely, MD ISADORA Omalley / SIMA: [phone] /
--- NOTE | 2018-11-10 08:24 | AN ---
ANGIOGRAPHY REPORT ABDOMINAL AORTOGRAM: DATE OF SERVICE: 11/10/2018 PERFORMING PHYSICIAN: Alfonso Lau MD, [employer]. PROCEDURE PERFORMED: 1. An abdominal aortogram. 2. Non-selective renal arteries angiogram. INDICATION: This is a 53-year-old female patient who was diagnosed recently with resistant hypertension and underwent renal artery duplex study in the hospital and that showed possible renal artery stenosis on the left side more than the right side. Because of that, she was referred for further evaluation. APPROACH: Right common femoral artery. COMPLICATION: None. LEVEL OF SEDATION: Moderate with sedation length of 11 minutes. PROCEDURE DESCRIPTION: After obtaining an informed consent, the patient was brought to the cardiac laborer rags. The right common femoral artery was cannulated using micropuncture technique. The micropuncture wire passed easily, then I placed a 5-Wallisian sheath in the right common femoral artery. I did after that an abdominal aortogram and non-selective renal arteries angiogram using 5-Wallisian pigtail catheter which was placed at the level of the renal arteries. The procedure was completed without any complication. SELECTIVE PERIPHERAL ANGIOGRAM: 1. The aorta appeared to be angiographically normal. 2. RENAL ARTERIES: The right and left renal arteries appeared to have mild disease only. CONCLUSION: 1. Mild nonobstructive disease involving the right and left renal arteries. 2. Normal abdominal aorta without any evidence of aneurysmal dilatation or atherosclerosis. POSTPROCEDURE MANAGEMENT: 1. Medical treatment. 2. Follow up with the patient. MMODL / IJN: [id number] /
[2018-11-10] MEDS ORDERED: cloNIDine HCL 0.2 MG TAB PO STA (11:02)
--- NOTE | 2018-11-10 11:51 | IR ---
Fluoroscopy HISTORY: Hypertension 60 seconds fluoroscopy time supplied to the referring clinician. 56 intraoperative C-arm images docu ment the procedure. See dictated report from cardiology.
[2018-11-10] MEDS ORDERED: traMADol 50 MG TAB PO STA (11:53)
[2018-11-10 13:50] VITALS: BP 158/86
== END 2018-11-10 13:30 | disposition home or self-care (01) ==
LOC: CATHCVL 05:53
PROVIDERS: ATTEND Internal Medicine Interventional Cardiology
DX: I10 Essential (primary) hypertension (principal); Z82.49 Family history of ischemic heart disease and other diseases of the circulatory system; Z79.899 Other long term (current) drug therapy; Z88.2 Allergy status to sulfonamides
CPT/HCPCS: 75625; C1894; C1769 ×3; J2250; J0360; J2001; J3010; Q9966

== ENCOUNTER → 2018-12-30 | Outpatient (CLI) | payer MEDICARE, OTHER ==
--- NOTE | 2018-12-30 12:16 | CT ---
EXAMINATION TYPE: CT sinus wo con DATE OF EXAM: 12/30/2018 COMPARISON: NONE HISTORY: sinus infection unresponsive to treatment CT DLP: 648 mGycm. Automated Exposure Control for Dose Reduction was Utilized. TECHNIQUE: CT scan of the sinuses is performed without contrast, axial images are obtained, coronal r eformatted images are also reviewed. FINDINGS: Within the dependent right maxillary sinus there is an ovoid 1.0 cm mucosal retention cyst versus sessile polyp. Mild mucosal thickening is also seen within the dependent left maxillary sinus. Minimal mucosal thickening is rounded in the left ethmoid sinuses. The sphenoid sinuses and frontal sinuses are well aerated although the frontal sinuses are noted to be hypoplastic. The mastoid air ce lls and middle ear cavities are well aerated. No debris within the external auditory canals. There is mild mucosal hypertrophy of the left inferior nasal turbinate. The right ostiomeatal complex is occl uded by slight mucosal thickening. A 3 mm nonobstructing Ghulam cell is seen on the left. No yoselyn b ullosa. Frontal recesses appear patent. Exam is not optimized for evaluation of intracranial structures. Orbits appear symmetric. IMPRESSION: 1. Right maxillary 1.0 cm mucosal retention cyst versus sessile polyp. 2. Mild mucosal thickening in the ethmoid sinuses also appears polypoid with scant mucosal thickening in the left maxillary sinus dependently. 3. Nonobstructing 3 mm left-sided Ghulam cell. 4. Occlusion of the right ostiomeatal complex by mucosal thickening. 5. Mild left inferior nasal turbinate mucosal hypertrophy.
== END | disposition home or self-care (01) ==
LOC: RADCTMAIN 11:36
PROVIDERS: ATTEND Family Medicine
DX: J34.3 Hypertrophy of nasal turbinates (principal); J34.89 Other specified disorders of nose and nasal sinuses
CPT/HCPCS: 70486

== ENCOUNTER 2019-01-28 07:50 | Day surgery (SDC) | payer MEDICARE, OTHER ==
[2019-01-25 15:42] VITALS: BMI 27.4
[~2019-01-28 07:50] MED LIST: LACTATED RINGERS 1,000 ML IV SCH; LIDOCAINE 1% 20 ML VIAL (10MG/ML) FOR IV START INTRADERMA PRN
[2019-01-28 08:10] VITALS: TEMP 97
[2019-01-28] MEDS ORDERED: PROPOFOL 10 MG/ML 20 ML VIAL IV ONE (08:42)
[2019-01-28] MEDS ORDERED: LACTATED RINGERS 1,000 ML IV ONE (09:14)
[2019-01-28] MEDS ORDERED: IV FLUID CONTINUATION 1,000 ML IV ONE (09:14)
--- NOTE | 2019-01-28 09:18 | P.PCN ---
Date of Procedure: 01/28/19 Description of Procedure: BRIEF HISTORY: 53-year-old female who presents for outpatient screening colonoscopy. She reports her last colonoscopy was approximately 10 years ago and believes that it was normal. The patient denied any symptoms of blood per rectum, melena, change in bowel habits, diarrhea or constipation. Denies any familial history of colon cancer. PROCEDURE PERFORMED: Colonoscopy. PREOPERATIVE DIAGNOSIS: Screening for colon cancer, last colonoscopy approximately 10 years ago. ESTIMATED BLOOD LOSS: Minimal. IV sedation per Anesthesia. PROCEDURE: After informed consent was obtained, the patient, was brought into the endoscopy unit. IV sedation was administered by Anesthesia under continuous monitoring. Digital rectal examination was normal. Initially the Olympus CF-190 flexible video colonoscope was then inserted in the rectum, gradually advanced into the cecum without any difficulty. The terminal ileum was intubated and appeared normal. Careful examination was performed as the scope was gradually being withdrawn. Ileocecal valve and the appendiceal orifice were visualized and appeared normal. Prep was fair with a large amount of liquid stool throughout the colon which was successfully lavaged and suctioned, however there were also solid which impaired complete visualization of the mucosa. Mucosa of the cecum, ascending colon, transverse colon, descending colon, sigmoid colon, and rectum which was visualized appeared normal. Mild internal hemorrhoids. Retroflexion was performed in the rectum and no lesions were seen. The patient tolerated the procedure well. IMPRESSION: Fair prep Mild internal hemorrhoids Normal-appearing colon from rectum to cecum RECOMMENDATIONS: Findings of this examination were discussed with the patient and her friend. Okay to resume diet. Would recommend repeat colonoscopy in 3 years given fair prep.
[2019-01-28 09:36] VITALS: BP 136/88; PULSE 71; RESP 16
== END 2019-01-28 09:38 | disposition home or self-care (01) ==
LOC: ORWHC2ENDO 07:50
PROVIDERS: ATTEND Internal Medicine
DX: Z12.11 Encounter for screening for malignant neoplasm of colon (principal); K64.8 Other hemorrhoids; K21.9 Gastro-esophageal reflux disease without esophagitis; I10 Essential (primary) hypertension; Z79.891 Long term (current) use of opiate analgesic; Z79.899 Other long term (current) drug therapy; Z88.1 Allergy status to other antibiotic agents; Z88.2 Allergy status to sulfonamides; Z91.018 Allergy to other foods
CPT/HCPCS: J2704; G0121

== ENCOUNTER → 2020-02-05 | Outpatient (CLI) | payer MEDICARE, OTHER ==
--- NOTE | 2020-02-06 21:08 | CT ---
EXAMINATION TYPE: CT abdomen wo/w con DATE OF EXAM: 02/05/2020 COMPARISON: NONE HISTORY: 54-year-old female Hematuria and dysuria. TECHNIQUE: Contiguous axial scanning of the abdomen before and after administration of 100 ml Isovue 300 IV contrast. Delayed images through the kidneys and coronal/sagittal reconstructions performed. CT DLP: 772.9 mGycm Automated exposure control for dose reduction was used. FINDINGS: Bilateral breast implants. Heart upper limits of normal size without pericardial effusion. Bands of a telectasis at the right greater than left lung bases. No pleural effusion. Liver borderline in size at 17.6 cm A couple nonspecific hypodense lesions measuring 1.9 and 0.8 cm in the right liver lobe can be reasse ssed at follow-up. Suspected hemangiomas. Portal venous system is patent. No biliary ductal dilatatio n. Gallbladder, adrenal glands, spleen, and pancreas appear within normal limits. Approximately 3 punctate nonobstructive calculi in the right kidney measuring up to 3 mm and one on t he left measuring up to 2 mm. No hydronephrosis. Symmetric uptake and excretion of contrast from the kidneys. No dilated small bowel, free fluid, or free air. No mesenteric or retroperitoneal lymphadenopathy. Some prominent fluid-filled small bowel loops in the mid and lower abdomen and liquid stool within th e right side of the colon. Some annular narrowing along the ascending colon, refer to coronal image 3 9 may relate to focal peristalsis. The pelvis is not imaged. Bones: Facet arthropathy lower lumbar spine. Moderate to advanced degenerative disc disease upper lum bar spine. Hypertrophic facet arthropathy is present. Trace grade 1 retrolisthesis of L2-L3. IMPRESSION: 1. PUNCTATE NONOBSTRUCTIVE BILATERAL RENAL CALCULI MEASURING UP TO 3 MM. NO HYDRONEPHROSIS. NO SUSPIC IOUS RENAL LESION. 2. SOME PROMINENT FLUID-FILLED SMALL BOWEL LOOPS IN THE MID AND LOWER ABDOMEN AND LIQUID STOOL THROUG HOUT THE RIGHT SIDE OF THE COLON. CORRELATE FOR POSSIBLE ENTERITIS. 3. SHORT SEGMENT ANNULAR NARROWING ALONG THE ASCENDING COLON COULD REPRESENT FOCAL PERISTALSIS. CORRE LATE WITH DIRECT VISUALIZATION TO EXCLUDE NEOPLASM IF ROUTINE SCREENING COLONOSCOPY IS NOT BEING PERF ORMED. 4. TWELVE-MONTH FOLLOW-UP CT RECOMMENDED TO REASSESS THE NONSPECIFIC RIGHT HEPATIC LOBE LESIONS MEASU RING UP TO 1.8 CM. HEMANGIOMAS ARE SUSPECTED.
== END | disposition home or self-care (01) ==
LOC: RADCTMAIN 07:12
PROVIDERS: ATTEND Family Medicine
DX: N20.0 Calculus of kidney (principal); K76.89 Other specified diseases of liver
CPT/HCPCS: 74170; Q9967

== ENCOUNTER 2020-03-02 10:44 | Day surgery (SDC) | payer MEDICARE, OTHER ==
[2020-03-02 11:01] VITALS: RESP 16; TEMP 97.4
[2020-03-02] MEDS ORDERED: LACTATED RINGERS 1,000 ML IV ONE (11:03)
--- NOTE | 2020-03-02 12:02 | P.GSHP ---
History of Present Illness H&P Date: 03/02/20 Chief Complaint: Screening colonoscopy This a 54-year-old female who presents today for screening colonoscopy. Patient denies a significant GI complaints. Past Medical History Past Medical History: Cancer, GERD/Reflux, Hypertension, Osteoarthritis (OA) Additional Past Medical History / Comment(s): HX SKIN CA , djd, History of Any Multi-Drug Resistant Organisms: MRSA Date of last positivie culture/infection: 2009 MDRO Source:: bilat thighs and left eye Past Surgical History: Appendectomy, Breast Surgery, Hysterectomy, Joint Replacement, Orthopedic Surgery, Tubal Ligation Additional Past Surgical History / Comment(s): carpal tunnel bilat hands, jenna. leg surgery(STRETCHING OF JENNA CALF MUSCLES), Right hip replacement. SKIN CA REMOVED LEFT EYELID. BREAST IMPLANTS, nasal sx Past Anesthesia/Blood Transfusion Reactions: No Reported Reaction Past Psychological History: ADD/ADHD, Anxiety, Bipolar, Depression Past Alcohol Use History: None Reported Past Drug Use History: Marijuana Additional Drug Use History / Comment(s): medical marijuana card current- Occassional use-INSTRUCTED TO REFRAIN FROM USE FOR AT LEAST 24 HOURS PRIOR TO PROCEDURE - Past Family History Mother Family Medical History: No Reported History Father Family Medical History: Coronary Artery Disease (CAD), Myocardial Infarction (RI) Additional Family Medical History / Comment(s): stents Medications and Allergies Home Medications Medication Instructions Recorded Confirmed Type Montelukast [Singulair] 10 mg PO HS 07/04/17 03/02/20 History Pantoprazole Sodium 40 mg PO HS 07/04/17 03/02/20 History Mirtazapine [Remeron] 30 mg PO BID 08/28/18 03/02/20 History QUEtiapine [SEROquel] 300 mg PO DAILY 08/28/18 03/02/20 History cloNIDine HCL [Catapres] 0.2 mg PO TID #90 tab 09/03/18 03/02/20 Rx lamoTRIgine [LaMICtal] 200 mg PO HS 09/23/18 03/02/20 History Atorvastatin [Lipitor] 10 mg PO ONCE 03/02/20 03/02/20 History Escitalopram [Lexapro] 10 mg PO ONCE 03/02/20 03/02/20 History lisinopriL [Lisinopril] 40 mg PO ONCE 03/02/20 03/02/20 History Allergies Allergy/AdvReac Type Severity Reaction Status Date / Time banana Allergy Anaphylaxis Verified 03/02/20 10:57 sulfamethoxazole Allergy Nausea Verified 03/02/20 10:57 [From Bactrim] trimethoprim [From Bactrim] Allergy Nausea Verified 03/02/20 10:57 doxycline hyclate Allergy Nausea & Uncoded 03/02/20 10:57 Vomiting Surgical - Exam Vital Signs Temp Pulse Resp BP Pulse Ox 97.4 F L 86 16 128/58 98 03/02/20 11:00 03/02/20 11:00 03/02/20 11:00 03/02/20 11:00 03/02/20 11:00 - General well nourished, no distress - Eyes PERRL - ENT normal pinna - Neck no masses - Respiratory normal expansion - Cardiovascular Rhythm: regular - Abdomen Abdomen: soft, non tender Assessment and Plan Assessment: We'll perform screening colonoscopy.
[2020-03-02] MEDS ORDERED: PROPOFOL 10 MG/ML 20 ML VIAL IV ONE (12:03)
--- NOTE | 2020-03-02 12:14 | P.OP ---
Date of Procedure: 03/02/20 Preoperative Diagnosis: Screening colonoscopy Postoperative Diagnosis: Normal colonoscopy Procedure(s) Performed: Screening colonoscopy Anesthesia: MAC Surgeon: Michael Piña Pathology: none sent Condition: stable Disposition: PACU Description of Procedure: PROCEDURE: The patient was placed on the endoscopy table in the lateral position. Digital rectal examination was performed which revealed no abnormalities. . Flexible colonoscope was then placed in the patient's anus and passed throughout the entire colon. The ileocecal valve was visualized. The cecum, ascending, transverse, descending and sigmoid colon were normal. The rectum was normal as well. There were no masses, polyps or diverticula noted in the entire colon.
[2020-03-02 12:31] VITALS: BP 86/50; PULSE 60
[2020-03-02] MEDS ORDERED: LACTATED RINGERS 1,000 ML IV SCH (12:36)
== END 2020-03-02 13:02 | disposition home or self-care (01) ==
LOC: ORWHC2ENDO 10:44
PROVIDERS: ATTEND Surgery
DX: Z12.11 Encounter for screening for malignant neoplasm of colon (principal); K21.9 Gastro-esophageal reflux disease without esophagitis; I10 Essential (primary) hypertension; M19.90 Unspecified osteoarthritis, unspecified site; Z85.828 Personal history of other malignant neoplasm of skin; Z86.14 Personal history of Methicillin resistant Staphylococcus aureus infection; Z90.710 Acquired absence of both cervix and uterus; Z98.51 Tubal ligation status; Z98.890 Other specified postprocedural states; Z96.641 Presence of right artificial hip joint; F41.9 Anxiety disorder, unspecified; F31.9 Bipolar disorder, unspecified; Z79.899 Other long term (current) drug therapy; Z82.49 Family history of ischemic heart disease and other diseases of the circulatory system; Z88.1 Allergy status to other antibiotic agents; Z88.2 Allergy status to sulfonamides; Z91.018 Allergy to other foods
CPT/HCPCS: J2704; G0121; 45378

== ENCOUNTER → 2020-06-01 | Outpatient (CLI) | payer MEDICARE, OTHER ==
--- NOTE | 2020-06-01 10:03 | CT ---
EXAMINATION TYPE: CT sinus wo con DATE OF EXAM: 06/01/2020 COMPARISON: 12/30/2018 HISTORY: 54-year-old female J32.9, Chronic sinusitis CT DLP: 652 mGycm Automated exposure control for dose reduction was used. TECHNIQUE: Noncontrast axial views of the paranasal sinuses were obtained. Coronal reconstructions pe rformed. FINDINGS: PARANASAL SINUSES: The previous mucosal retention cyst along the floor of the right maxillary sinus has resolved. Previo us mild mucosal thickening floor of the left maxillary sinus is also resolved. Right frontal sinus is hypoplastic. The ethmoid and sphenoid sinuses are clear and well pneumatized. There is no mucosal thickening or air-fluid level. Reactive sam- osteogenesis is not seen. There is no destruction of the osseous simpson of the paranasal sinuses. THE NASAL CAVITY: The osteomeatal complexes are patent. Some undulation of the anterior nasal septum. The imaged brain and orbits are normal in appearance. Mastoid air cells and middle ear cavities are well pneumatized. Reformatted images confirm above findings. IMPRESSION: Interval clearing of the previous mild paranasal sinus disease. Some undulation of the anterior nasal septum.
== END | disposition home or self-care (01) ==
LOC: RADCTMAIN 08:36
PROVIDERS: ATTEND Family Medicine
DX: J34.89 Other specified disorders of nose and nasal sinuses (principal); J32.9 Chronic sinusitis, unspecified
CPT/HCPCS: 70486

== ENCOUNTER → 2021-02-20 | Outpatient (CLI) | payer MEDICARE, OTHER ==
--- NOTE | 2021-02-20 10:01 | ECHOF ---
Referral Reason:R94.31 abnormal EKG MEASUREMENTS -------- HEIGHT: 160.0 cm WEIGHT: 61.2 kg BP: IVSd: 1.2 cm (0.6 - 1.1) LVIDd: 4.2 cm (3.9 - 5.3) LVPWd: 1.1 cm (0.6 - 1.1) EDV(Teich): 79 ml IVSs: 2.0 cm LVIDs: 1.9 cm LVPWs: 1.9 cm %IVS Thck: 60 % ESV(Teich): 11 ml EF(Teich): 86 % %FS: 54 % SV(Teich): 68 ml RVIDd: 2.9 cm (< 3.3) IVC: 16.34 mm LALs A4C: 5.1 cm LAAs A4C: 19.8 cm LAESV A-L A4C: 65 ml LAESV MOD A4C: 63 ml LALs A2C: 5.3 cm LAAs A2C: 16.4 cm LAESV A-L A2C: 43 ml LAESV MOD A2C: 39 ml LAESV(A-L): 54 ml LAESV Index (A-L): 32.74 ml/m Ao Diam: 2.7 cm (2.0 - 3.7) LA Diam: 2.9 cm (2.7 - 3.8) AV Cusp: 1.8 cm (1.5 - 2.6) EPSS: 0.8 cm MV E Justen: 0.97 m/s MV DecT: [address] [place]: 4.3 m/s MV A Justen: 0.87 m/s MV E/A Ratio: 1.12 MV PHT: 66 ms MR Vmax: 1.37 m/s MR maxP.51 mmHg AV Vmax: 1.52 m/s AV maxP.20 mmHg TR Vmax: 1.75 m/s TR maxP.25 mmHg RAP: 5.00 mmHg RVSP: 17.25 mmHg MV EF SLOPE: 68.76 mm/s (70 - 150) MV EXCURSION: 10.43 mm (> 18.000) FINDINGS -------- This was a technically good study. The left ventricular size is normal. There is mild concentric left ventricular hypertrophy. Overa ll left ventricular systolic function is normal with, an EF between 55 - 60 %. The diastolic fillin g pattern is normal for the age of the patient 11.28. The right ventricle is normal in size. LA is midly dilated 29-33ml/m2. The right atrial size is normal. Interatrial and interventricular septum intact. The aortic valve is trileaflet and appears structurally normal. The mitral valve is normal. Mild mitral regurgitation is present. The tricuspid valve appears structurally normal. Mild tricuspid regurgitation present. Right vent ricular systolic pressure is normal at < 35 mmHg. Trace/mild (physiologic) pulmonic regurgitation. The aortic root size is normal. Normal inferior vena cava with normal inspiratory collapse consistent with estimated right atrial pre ssure of 5 mmHg. There is no pericardial effusion. CONCLUSIONS -------- 1. The left ventricular size is normal. 2. There is mild concentric left ventricular hypertrophy. 3. Overall left ventricular systolic function is normal with, an EF between 55 - 60 %. 4. The diastolic filling pattern is normal for the age of the patient 11.28 5. LA is midly dilated 29-33ml/m2. 6. Mild mitral regurgitation is present. 7. Mild tricuspid regurgitation present. 8. Trace/mild (physiologic) pulmonic regurgitation. 9. There is no pericardial effusion. BEATER OPERATOR: Vannesa Zee RDCS
== END | disposition home or self-care (01) ==
LOC: RADECHMAIN 07:54
PROVIDERS: ATTEND Family Medicine
DX: I08.8 Other rheumatic multiple valve diseases (principal)
CPT/HCPCS: 93306

== ENCOUNTER → 2021-05-12 | Outpatient (CLI) | payer MEDICARE, OTHER ==
--- NOTE | 2021-05-13 05:20 | MR ---
EXAMINATION TYPE: MR brain wo/w con DATE OF EXAM: 05/12/2021 COMPARISON: 08/29/2017 HISTORY: Disorientation, repeated falls CONTRAST: Standard multiplanar, multisequence MRI departmental protocol utilizing 6 mL intravenous Gadavist chel olinium contrast. On the T2 and FLAIR images there are multiple foci of abnormal focal increased signal in the harmon-whi te matter junction of both cerebral hemispheres. This is more noticeable in the left parietal lobe. T he lesions measure up to 1 cm and the total number is approximately 25. Most of the lesions are less than 5 mm. There is no mass effect nor midline shift. There is no sign of intracranial hemorrhage. Th ere is no sign of an acute infarct. There is cerebral mild atrophy. There is no evidence of cortical infarct. The contrast images show normal enhancement of the venous sinuses. There is no pathologic enhancement . The sella turcica appears normal. Optic chiasm appears normal. There is no evidence of orbital mass . IMPRESSION: Mild atrophy. White matter signal changes consistent with chronic small vessel ischemia or demyelinat ing disease. No significant change compared to old exam.
== END | disposition home or self-care (01) ==
LOC: RADMRIMAIN 13:58
PROVIDERS: ATTEND Family Medicine
DX: G31.9 Degenerative disease of nervous system, unspecified (principal); R29.6 Repeated falls
CPT/HCPCS: 70553; A9585

== ENCOUNTER → 2022-06-07 | Outpatient (CLI) | payer MEDICARE, OTHER ==
[~2022-06-07] MED LIST changes: +DOBUTamine DRIP for NUC MED 500 MG in DEXTROSE/WATER 1 250ML.BAG IV PRN; -LACTATED RINGERS 1,000 ML IV SCH; -LIDOCAINE 1% 20 ML VIAL (10MG/ML) FOR IV START INTRADERMA PRN
--- NOTE | 2022-06-07 12:58 | CA ---
Dobutamine Stress Echocardiogram Report Deirdre Lucas Age: 56 Gender: F : 1965 Exam Date: 06/07/2022 10:02 Exam Location: [place] [facility] Ordering Physician: Marisela Curtis DO Referring Physician: Maria Teresa Sena Title Examiner: LARRY Technologist: Ht (in): 63 Wt (lb): 150 Procedure CPT: Indication: I25.10 CAD R55 SYNCOPE R94.31 ABN EKG ICD-9 Codes: Rhythm: Patient History: Syncope, Chest pain and shortness of breath Cardiac Medications: Medications in past 24 hours: Contrast: Total Dose (mL): Stress Results Protocol: Dobutamine Peak Dose (???g/kg/min): 40 Duration (min:sec): Atropine:(mg) Target HR: 138 Double Product: [id number] Resting HR: 56 Resting BP: 139 / 85 Peak HR: 140 Peak BP: 165 / 92 Max Predicted HR: 162 86 % Max Predicted HR Stress Summary: BP Response: Reason for Termination: Exceeded target heart rate (85% max predicted) Cardiac Symptoms: none ECG Analysis Resting EKG: Stress EKG: Arrhythmia: Echo Analysis Base Echo Analysis: Low Echo Anaylsis: Peak Echo Analysis: Recovery Echo: MEASUREMENTS (Male/Female) Normal Values CONCLUSIONS Activity vein stress echo shows abnormal ST segments with ST depression during recovery Augmentation of oral LV contractility with excellent wall thickening on echocardiographic images no wall motion abnormalities Abnormal EKG response No echocardiographic evidence for ischemia Dr. Kelby Garvey MD (Electronically Signed) Final Date: 07 June 2022 12:57
== END | disposition home or self-care (01) ==
LOC: RADNMMAIN 09:34
PROVIDERS: ATTEND Family Medicine
DX: I25.10 Atherosclerotic heart disease of native coronary artery without angina pectoris (principal); R55 Syncope and collapse; R94.31 Abnormal electrocardiogram [ECG] [EKG]
CPT/HCPCS: 93351

== ENCOUNTER → 2023-05-01 | Outpatient (CLI) | payer MEDICARE, OTHER ==
--- NOTE | 2023-05-02 09:00 | MM ---
Reason for Exam: Screening (asymptomatic). Last mammogram was performed 5 year(s) and 11 month(s) ago. Patient History: Menarche at age 13. First Full-Term at age 21. Left ovary removed at age 33. Hysterectomy at age 33. Postmenopausal. Other cancer. 02/26/2018, Benign Core Biopsy on the left side. 01/30/2018, US discontinued breast bx LT on the left side. 08/06/2017, US discontinued breast bx LT on the left side. 07/16/2017, US discontinued breast bx LT on the left side. 2005, Bilateral Implants. Risk Values: Clare 5 year model risk: 1.3%. NCI Lifetime model risk: 7.2%. Prior Study Comparison: 09/24/2013 Screening Mammogram, [facility]. 06/03/2017 Bilateral Screening Mammogram, [facility]. 02/26/2018 Left Diagnostic Mammogram, [facility]. Tissue Density: The breast tissue is heterogeneously dense. This may lower the sensitivity of mammography. Findings: Analyzed By CAD. There is no suspicious group of microcalcifications or new suspicious mass in either breast. Bilateral implants are intact. Overall Assessment: Benign, BI-RAD 2 Management: Screening Mammogram of both breasts in 1 year. . Patient should continue monthly self-breast exams. A clinical breast exam by your physician is recommended on an annual basis. This exam should not preclude additional follow-up of suspicious palpable abnormalities. Note on Clare scores and lifetime risk: 1. A Clare score greater than 3% is considered moderate risk. If this is the case, consider specialist referral to assess eligibility for a risk reducing agent. 2. If overall lifetime risk for the development of breast cancer is 20% or higher, the patient may qualify for future screening with alternating mammogram and breast MRI. Electronically signed and approved by: Steve Arce M.D. Radiologis
== END | disposition home or self-care (01) ==
LOC: RADMAMWWP 07:43
PROVIDERS: ATTEND Family Medicine
DX: Z12.31 Encounter for screening mammogram for malignant neoplasm of breast (principal); Z78.0 Asymptomatic menopausal state
CPT/HCPCS: 77067